=== PATIENT | male | born 1960 | race Two or more races ===

== ENCOUNTER 2024-06-20 11:12 | Inpatient (IN) | payer OTHER ==
[~2024-06-20] VITALS: Ht 167.6 cm; Wt 76.7 kg
[2024-06-20] MEDS ORDERED: NASAL MIST126 ML (12:38)
[2024-06-20] MEDS ORDERED: PROAIR RESPICL90 MCG IH (12:38)
[2024-06-20] MEDS ORDERED: LEVALBUTEROL HCL 1.25 MG/3 ML SOLUTION IH ONE (14:30)
[2024-06-20] MEDS ORDERED: MONTELUKAST SODIUM 10 MG TABLET PO ONE (14:30)
[2024-06-20] MEDS ORDERED: METHYLPREDNISOLONE SOD SUCC 40 MG VIAL IM ONE (14:30)
[2024-06-20] MEDS ORDERED: METHYLPREDNISOLONE SOD SUCC 40 MG VIAL ONE (14:35)
[2024-06-20 15:02] LABS: HEMATOCRIT 38.9 % (39.0-48.0); HEMOGLOBIN 12.9 g/dL (13-16.00); MEAN CELL VOLUME 85.6 fL (80.0-100.00); MEAN CORPUSCULAR HEMOGLOBIN 28.5 pg (27.00-32.0); MEAN CORPUSCULAR HGB CONC 33.2 g/dl (32.0-36.0); PLATELET COUNT 360 K/uL (150-450); RED BLOOD COUNT 4.54 M/uL (4.00-6.00); RED CELL DISTRIBUTION WIDTH 14.2 % (11.5-14.5)
[2024-06-20] MEDS ORDERED: 0.9 % SODIUM CHLORIDE 1,000 ML IV ONE (17:00)
[2024-06-20 17:27] LABS: ABG PH 7.461 (7.35-7.45); ABG pCO2 28.7 mmHg (35-45)
[2024-06-20 17:28] LABS: BASE EXCESS -2.4 mmol/l; SaO2 89.4 %; Tco2 20.9 mmol/l
[2024-06-20 17:29] LABS: allen test SATISFACTORY; o2 21 %; puncture site RADIAL LEFT
[2024-06-20 17:30] LABS: ABG PO2 53.9 mmHg (80-100)
[2024-06-20 17:54] LABS: ALBUMIN 3.2 gm/dL (3.4-5.0); BILIRUBIN TOTAL 0.46 mg/dL (0.3-1.2); CALCIUM 9.1 mg/dL (8.5-10.1); CREATININE SERUM 0.83 mg/dL (0.70-1.30); GFR 93.27; GLOBULINA 4.4 G/DL (2.4-3.5); POTASSIUM 4.34 mEq/L (3.5-5.1); TOTAL PROTEIN 7.6 gm/dL (6.4-8.2)
[2024-06-20 18:12] LABS: INR 1.14; PROTHROMBIN TIME 12.3 SECONDS (9.0-11.5)
[2024-06-20 18:14] LABS: D DIMER 0.43 MG/L; PARTIAL THROMBOPLASTIN TIME 27.3 SECONDS (22.0-34.0)
[2024-06-20 21:05] LABS: FIBRINOGEN > 860 mg/dL (187.0-446.0)
[2024-06-20] MEDS ORDERED: IPRATROPIUM BROMIDE 0.5 MG/2.5 ML AMPUL.NEB IH SCH (21:25)
[2024-06-20] MEDS ORDERED: PIPERACILLIN/TAZOBACTAM SODIUM 3.375 GM in DEXTROSE 5 % IN WATER 100 ML IV SCH (21:29)
[2024-06-20] MEDS ORDERED: FUROsemide 20 MG/2 ML VIAL IV SCH (21:29)
[2024-06-20] MEDS ORDERED: ACETAMINOPHEN 500 MG GEL..CAP PO PRN (21:30)
[2024-06-20] MEDS ORDERED: 0.9 % SODIUM CHLORIDE 1,000 ML IV SCH (21:30)
[2024-06-21] MEDS ORDERED: FUROsemide 20 MG/2 ML VIAL ONE (03:17)
[2024-06-21 04:44] LABS: INR 1.14; PARTIAL THROMBOPLASTIN TIME 26.3 SECONDS (22.0-34.0); PROTHROMBIN TIME 12.3 SECONDS (9.0-11.5)
[2024-06-21 04:55] LABS: PH,URINE 5.5 (5.0-8.0); URINE APPEARANCE Clear; URINE BILIRRUBIN Negative (NEGATIVE); URINE BLOOD Negative; URINE COLOR Yellow; URINE GLUCOSE Negative (NEGATIVE); URINE KETONE 15 (NEGATIVE); URINE LEUKOCYTE Negative; URINE NITRATE Negative; URINE PROTEIN Negative (NEGATIVE); URINE UROBILINOGEN 0.2 E.U./dl
[2024-06-21 04:56] LABS: URINE EPITHELIAL CELLS 6.1 uL (0.0-38.8); URINE WBC 13.4 uL (0.0-23.2)
[2024-06-21 04:58] LABS: URINE RBC 1.6 uL (0.0-20.8)
[2024-06-21 07:52] VITALS: BP 112/62; O2SAT 99
[2024-06-21] MEDS ORDERED: ENOXAPARIN SODIUM 40 MG/0.4 ML SYRINGE SUBCUTANEO SCH (09:00)
[2024-06-21] MEDS ORDERED: FAMOTIDINE/PF 20 MG in 0.9 % SODIUM CHLORIDE 8 ML IV PUSH SCH (09:00)
[2024-06-21 15:33] VITALS: BP 124/76; O2SAT 95
[2024-06-21 16:53] VITALS: O2SAT 97
[2024-06-21] MEDS ORDERED: AZITHROMYCIN 500 MG VIAL IV SCH (17:00)
[2024-06-21] MEDS ORDERED: CEFTRIAXONE SODIUM 2,000 MG in 0.9 % SODIUM CHLORIDE 100 ML IV SCH (17:00)
[2024-06-21 21:02] VITALS: BP 126/76; O2SAT 98
[2024-06-21 21:10] LABS: PLEURAL FLUID APPEARANCE TURBID; PLEURAL FLUID COLOR YELLOW
[2024-06-21 21:44] LABS: GLU PLEURAL FLUID 118 mg/dl; LDH PLEURAL FLUID 153 U/L; TP PLEURAL FLUID 3.6 g/dl
[2024-06-21 21:45] LABS: CHOL PLEURAL FLUID < 50 mg/dl
[2024-06-21 21:56] LABS: MONONUCLEAR 99 %; POLYMORPHONUCLEAR 1 %
[2024-06-21 22:15] VITALS: O2SAT 96
[2024-06-22] VITALS (8 sets, daily range): BP systolic 125–139; BP diastolic 75–76; O2SAT 90–99
[2024-06-23] VITALS (9 sets, daily range): BP systolic 116–149; BP diastolic 76–97; O2SAT 90–97
[2024-06-24] VITALS (9 sets, daily range): BP systolic 126–151; BP diastolic 77–103; O2SAT 90–100
[2024-06-24 22:20] LABS: ABG PH 7.439 (7.35-7.45); ABG PO2 73.5 mmHg (80-100); ABG pCO2 36.6 mmHg (35-45); BASE EXCESS 0.4 mmol/l; BICARBONATE 24.2 mmol/l (23-25); SaO2 95.2 %; Tco2 25.3 mmol/l
[2024-06-24 22:22] LABS: allen test SATISFACTORY; o2 21 %; puncture site RADIAL RIGHT
[2024-06-25] VITALS (9 sets, daily range): BP systolic 115–143; BP diastolic 69–85; O2SAT 95–99
[2024-06-25 08:17] LABS: HEMATOCRIT 38.1 % (39.0-48.0); HEMOGLOBIN 12.5 g/dL (13-16.00); MEAN CELL VOLUME 87.1 fL (80.0-100.00); MEAN CORPUSCULAR HEMOGLOBIN 28.5 pg (27.00-32.0); MEAN CORPUSCULAR HGB CONC 32.7 g/dl (32.0-36.0); PLATELET COUNT 399 K/uL (150-450); RED BLOOD COUNT 4.37 M/uL (4.00-6.00); RED CELL DISTRIBUTION WIDTH 13.4 % (11.5-14.5)
[2024-06-26] VITALS (8 sets, daily range): BP systolic 119–141; BP diastolic 72–78; O2SAT 90–99
[2024-06-27 01:39] VITALS: O2SAT 100
[2024-06-27 01:58] VITALS: BP 125/81; O2SAT 96
[2024-06-27 05:21] VITALS: O2SAT 96
[2024-06-27 08:41] VITALS: BP 117/74; O2SAT 97
[2024-06-27 09:11] VITALS: O2SAT 95
[2024-06-27 12:13] VITALS: O2SAT 95
== END 2024-06-27 14:32 | disposition designated cancer center or children's hospital (05) | DRG 194 ==
LOC: ER 11:14 → MEDI 23:11 → SEC-K 23:11 → MEDI 06-21 15:34
PROVIDERS: General Practice; Ophthalmology; Radiology Vascular & Interventional Radiology; ADMIT Internal Medicine Pulmonary Disease; ATTEND Internal Medicine Pulmonary Disease
PROC: BW24YZZ Computerized Tomography (CT Scan) of Chest and Abdomen using Other Contrast (ICD-10-PCS; 2024-06-20)
PROC: 0W993ZX Drainage of Right Pleural Cavity, Percutaneous Approach, Diagnostic (ICD-10-PCS; principal; 2024-06-21)
PROC: 4A12X4Z Monitoring of Cardiac Electrical Activity, External Approach (ICD-10-PCS; 2024-06-21)
PROC: B24BYZZ Ultrasonography of Heart with Aorta using Other Contrast (ICD-10-PCS; 2024-06-22)
DX: J18.9 Pneumonia, unspecified organism (principal); J90 Pleural effusion, not elsewhere classified; I50.9 Heart failure, unspecified; F10.20 Alcohol dependence, uncomplicated